=== PATIENT | male | born 1965 | race Two or more races ===

== ENCOUNTER 2017-11-15 10:17 | Day surgery (SDC) | payer BC ==
[2017-11-15] MEDS ORDERED: FENTAnyl 50 MCG/ML VIAL (11:14)
[2017-11-15] MEDS ORDERED: MIDAZOLAM 1 MG/ML 2 ML INJ (11:14)
[2017-11-15] MEDS ORDERED: PROPOFOL 20 ML (11:14)
== END 2017-11-15 16:03 | disposition home or self-care (01) ==
LOC: GIL 10:17
DX: Z12.11 Encounter for screening for malignant neoplasm of colon (principal); D12.5 Benign neoplasm of sigmoid colon
CPT/HCPCS: 45380; 88305